=== PATIENT | female | born 1950 | race Caucasian/White ===

== ENCOUNTER → 2023-05-22 06:34 | Day surgery (SDC) | payer MEDICARE, SELFPAY | LOC: GI 06:34 | PROVIDERS: ATTENDING PHYSICIAN Internal Medicine | DX: K22.2 Esophageal obstruction (principal); R13.10 Dysphagia, unspecified | CPT/HCPCS: 43249 ==

== ENCOUNTER → 2023-06-15 09:25 | Outpatient (REF) | payer MEDICARE, OTHER, SELFPAY | LOC: RST 09:25 | PROVIDERS: ATTENDING PHYSICIAN Internal Medicine; FAMILY PHYSICIAN Family Medicine | DX: R13.12 Dysphagia, oropharyngeal phase (principal) | CPT/HCPCS: 74230; 92611 ==